=== PATIENT | female | born 1955 | race Caucasian/White ===

== ENCOUNTER 2017-07-17 08:51 | Emergency (ER) | payer OTHER ==
[~2017-07-17] VITALS: Ht 170.2 cm; Wt 76.2 kg
[~2017-07-17 08:51] MED LIST: ANTIVERT 25 MG25 MG PO; BIOTIN800 MCG PO; BUPROPION XL300 M1 PO; CALCIUM + VITA1 EAC1 PO; FISH OIL500 M1 PO; FOLIC ACID1 M1 PO; MAGNESIUM400 M1 PO; N-ACETYL-L-CYS600 M1 PO; PHOSPHATIDYLSERI1 GM PO; PROVIGIL100 M1 PO; ROGAINE60 M1 TOP; VITAMIN B-122000 MC1 PO; VITAMIN D2000 UNIT PO; [UNRECOGNIZED DRUG - OTHER] PO
[2017-07-17 09:01] VITALS: BP 130/71
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
[2017-07-17] MEDS ORDERED: ZEBUTAL 50-3251 EACH PO (09:24)
[2017-07-17] MEDS ORDERED: MELOXICAM15 M1 PO (09:24)
== END 2017-07-17 09:30 ==
LOC: ERH 08:51
DX: S09.90XA Unspecified injury of head, initial encounter (principal); S06.0X0A Concussion without loss of consciousness, initial encounter; S00.33XA Contusion of nose, initial encounter; W22.8XXA Striking against or struck by other objects, initial encounter; Y93.89 Activity, other specified; Y92.9 Unspecified place or not applicable